=== PATIENT | male | born 1975 | race Caucasian/White ===

== ENCOUNTER 2016-10-01 14:11 | Emergency (ER) | payer OTHER ==
[~2016-10-01] VITALS: Ht 172.7 cm; Wt 95.5 kg
[2016-10-01 14:13] VITALS: BP 152/102; PULSE 73; RESP 17; O2SAT 98
[2016-10-01] MEDS ORDERED: 0.9% Sodium Chloride Inhalation Solution ONE (14:23)
[2016-10-01] MEDS ORDERED: Fluorescein 0.6 mg Ophthalmic Strip ONE (14:23)
--- NOTE | 2016-10-01 14:45 | ED.REPORT ---
HPI-Facial Injury Date of Service Oct 01, 2016 ED Provider: Ramón Olvera MD The pt is a 40 y/o male w presenting to the ED due to a L eye trauma roughly 2 hours ago. He was hit in the eye w/ a softball causing his vision to become very blurry and to see a white cloud directly following the hit. He reports vomiting twice after the incident but denies any neck pain or LOC. He also reports SOB w/ exertion over the last few months. Nursing Notes Stated Complaint: SOFTBALL VS FACE Chief Complaint: Head, Face, Neck Trauma Nursing Notes Reviewed: Yes Allergies: Coded Allergies: cephalexin (Unverified Allergy, Severe, anaphylaxis, 10/01/16) meperidine (Verified Allergy, Intermediate, agitation, 10/01/16) General Time Seen by Provider: 14:30 Chief Complaint Other (L eye injury ) Hx Obtained From: Patient Arrived By: Walk-in Onset Occurred: 1 - 4 hours ago Symptom Duration: Since onset Immunizations: All up to date Recent Healthcare: No recent doctor visit, No recent hospitalization Similar Sx Previous: No Past Medical History Past Medical History Pneumonia Past Surgical History None reported Smoking History Unknown if Ever Smoker Social History None reported Ambulatory Status Independent Review of Systems Eyes: Reports: Blurred left, Eye pain left Musculoskeletal: Denies: Neck pain Skin: Reports Swelling (L eyelid ) Complete sys rev & neg: except as marked. Respiratory: Reports: Shortness of breath (w/ exertion over the last few months ) GI: Reports: Vomiting Physical Exam Initial Vital Signs Vital Signs (First) Date Time Temp Pulse Resp B/P Pulse Ox O2 Delivery O2 Flow Rate FiO2 10/01/16 14:13 36.7 73 17 152/102 98 Room Air Initial VS: Reviewed General/Constitutional: Well-developed, Well-nourished Respiratory: Breath sounds normal, Clear to auscultation, No respiratory distress Cardiovascular: Regular rate & rhythm, Heart sounds normal, Intact distal pulses Extremities: Vascular intact, Neuro intact, No swelling, No tenderness Psychiatric: Mood/affect normal, Behavior normal, Normal thought content Head / Eyes: Normocephalic Tenderness inferiorly to L eye Large contusion to L eye Large transverse laceration of eyelid ENT: Atraumatic, Airway patent, Mucous membranes moist Neck: Atraumatic, Supple, Full range of motion, Non-tender Neurologic: Oriented X3, Speech NL Re-Eval/Medical Decision Source of Hx: Old records Consultation : Referral / Consult Name: Lucille Thomas MD Consulted With: [employer] Call Returned at: 14:47 Note: Requests CT of the orbits. If globe rupture or foreign bodies present the patient should be transferred to [facility] if not please call Dr. Thomas back at [phone] Counseled Regarding: Diagnosis, Lab results Discharge & Departure Impression: Primary Impression: Eye injury Discharge Condition All VS Reviewed: Yes Condition: Stable Referrals: NOPCP (PCP) Care Transferred to: Dr. Christiansen Care Transferred at: 15:00 Scribe Attestation Portions of this note were transcribed by Wilmer Hernandez. I, Dr. Olvera personally performed the history, physical exam and medical decision-making; I reviewed and confirmed the accuracy of the information in the transcribed note. Ramón Olvera MD Oct 01, 2016 14:45 Wilmer Hernandez Oct 01, 2016 14:51
[2016-10-01] MEDS ORDERED: Acetaminophen IV 1,000 MG in IV Premix 1 EACH IV ONE (14:50)
--- NOTE | 2016-10-01 15:12 | DRSVH ---
PROCEDURE: CT ORBITS WITHOUT CONTRAST ([id number]) INDICATIONS: 40 year-old male with left orbital injury involving a softball. TECHNIQUE: Noncontrast 3.0 mm axial images acquired through the orbits. For radiation dose reduction, the follo wing was used: automated exposure control. COMPARISON: None. FINDINGS: Image quality: Excellent. Orbits: There is asymmetric left periorbital preseptal soft tissue swelling and extensive gas, consi stent with lacerations. There is also left orbital medial post septal soft tissue gas in the extracon al region. Globes are symmetrical and intact. The optic nerves are normal in size. No retrobulbar m asses or fat abnormalities. The extra-ocular muscles are normal and symmetrical in appearance. Lacr imal glands are normal in size. Optic chiasm is normal. Intracranial: Visualized portions of the cerebral hemispheres, brainstem, and spinal cord are normal . Bones and sinuses: Comminuted left orbital medial wall blowout fracture is present. Left orbital floo r appears intact. There is patchy bilateral ethmoid air cell fluid. There is moderate dependent left maxillary sinus mucus retention cyst or polyp. There is left to right nasal septal deviation, along w ith sizable right nasal septal bony spurring. IMPRESSION: 1. Asymmetric left periorbital pre-septal soft tissue swelling and gas, consistent with overlying lac erations. The left globe remains intact. 2. Concomitant comminuted left orbital medial wall blowout fracture, with resultant post septal soft tissue gas adjacent to the left medial rectus muscle. 3. Dependent left maxillary sinus mucus retention cyst or polyp. Dictated by: Ino Day M.D. on 10/01/2016 at 15:04 Approved by: Ino Day M.D. on 10/01/2016 at 15:10
[2016-10-01] MEDS: HYDROmorphone 0.5 mg/0.5 mL iSecure Syringe IVPUSH PRN ×4 (15:22→18:27)
[2016-10-01] MEDS ORDERED: Ondansetron 2 mg/mL 2 mL Inj ONE (15:28)
[2016-10-01] MEDS ORDERED: Ondansetron 2 mg/mL 2 mL Inj IVPUSH ONE (15:30)
[2016-10-01 15:33] LABS: BASOPHILS % (AUTO) 0.1 % (0-3); EOSINOPHILS % (AUTO) 0.6 % (0-5); MONOCYTES % (AUTO) 5.5 % (4-12); Mean Corpuscular Hemoglobin 30.3 pg (27.0-35.0); NEUTROPHILS % (AUTO) 75.8 % (40-74); Platelet Count 221 bil/L (150-400)
[2016-10-01] MEDS ORDERED: HYDROmorphone 1 mg/mL Inj IVPUSH ONE (15:55)
[2016-10-01 17:38] VITALS: BP 140/94; PULSE 96; O2SAT 96
[2016-10-01] MEDS ORDERED: OXYC1TAB24 PO (17:57)
[2016-10-01] MEDS ORDERED: _oxyCODONE/APAP 5-325 mg Tablet PO PRN (18:35)
[2016-10-01 18:40] VITALS: BP 133/94; PULSE 49; RESP 20
== END 2016-10-01 18:45 | disposition home or self-care (01) ==
LOC: SED 14:11
DX: S02.32XA Fracture of orbital floor, left side, initial encounter for closed fracture (principal); H57.8 Other specified disorders of eye and adnexa; W21.07XA Struck by softball, initial encounter; Y93.9 Activity, unspecified; Y92.89 Other specified places as the place of occurrence of the external cause; Y99.8 Other external cause status; Z88.1 Allergy status to other antibiotic agents
CPT/HCPCS: 36415; 70480; 80053; 85025; 96374; 96375; 96376; 99284; J0131; J1170; J2405